=== PATIENT | female | born 2000 | race Caucasian/White ===

== ENCOUNTER 2020-09-25 02:14 | Emergency (ER) | payer OTHER ==
[~2020-09-25] VITALS: Ht 152.4 cm; Wt 42.3 kg
[2020-09-25 03:50] VITALS: BP 118/74
[2020-09-25 03:57] LABS: APPEARANCE,URINE TURBID (CLEAR); GLUCOSE, URINE (UA) NEGATIVE (NEGATIVE); KETONES,URINE TRACE mg/dL (NEGATIVE); LEUKOCYTE ESTERASE ,URINE SMALL (NEGATIVE); NITRATE,URINE NEGATIVE (NEGATIVE); OCCULT BLOOD,URINE LARGE (NEGATIVE); PROTEIN,URINE SEE CONFIRM (NEGATIVE); UROBILINOGEN,URINE 0.2 mg/dL (<=1.0)
[2020-09-25 04:06] LABS: BILIRUBIN,URINE PRELIM. POSITIVE (NEGATIVE)
[2020-09-25 04:29] LABS: SULFOSALICYLIC ACID,URINE 3+ (Negative)
[2020-09-25 04:30] LABS: BACTERIA,URINE None Seen /HPF (None Seen); RBC,URINE 26-50 /HPF (0-2); SQUAMOUS EPITHELIAL CELL,UR Few /LPF (None Seen); WBC,URINE 0-2 /HPF (0-5)
== END 2020-09-25 05:58 | disposition home or self-care (01) ==
LOC: EMS 02:21
DX: R10.9 Unspecified abdominal pain (principal)
CPT/HCPCS: 99283